=== PATIENT | female | born 1970 ===

== ENCOUNTER 2019-01-07 10:11 | Emergency (ER) | payer OTHER ==
[~2019-01-07] VITALS: Ht 160 cm; Wt 80.7 kg
[2019-01-07] MEDS ORDERED: SYNTHROID75 MCG (10:29)
== END 2019-01-07 18:02 | disposition home or self-care (01) ==
LOC: ER 10:11
DX: K52.9 Noninfective gastroenteritis and colitis, unspecified (principal); N39.0 Urinary tract infection, site not specified